=== PATIENT | female | born 1940 | race Two or more races ===

== ENCOUNTER 2016-10-13 10:28 | Emergency (ER) | payer MEDICARE, OTHER ==
[~2016-10-13] VITALS: Ht 160 cm; Wt 77.1 kg
[~2016-10-13 10:28] MED LIST: ACETAMINOPHEN-1 EAC1 ORAL; ADDERALL 5 MG TA5 MG ORAL; GINKGO BILOBA60 M3 PO; LEXAPRO10 MG ORAL; LEXAPRO20 MG ORAL; MAALOX525 MG/11 PO; MECLIZINE HCL25 MG ORAL; NAMENDA5 MG ORAL; NKM; NORCO 5-325 TA1 EACH ORAL; PEPCID40 MG PO; PRILOSEC40 MG ORAL; PROTONIX40 MG ORAL; TYLENOL EXTRA500 MG ORAL; UNOBMED; VITAMIN B-12100 MCG ORAL; VITAMIN D1000 UNI1 ORAL
[2016-10-13 10:44] VITALS: BP 107/71
[2016-10-13 11:05] LABS: APPEARANCE,URINE CLOUDY; KETONES,URINE NEGATIVE (NEGATIVE); LEUKOCYTE ESTERASE ,URINE 2+ (NEGATIVE); NITRITE,URINE NEGATIVE (NEGATIVE); PH,URINE 5 (4.5-8.0); PROTEIN,URINE 2+ (NEGATIVE); UROBILINOGEN,URINE 1 MG/DL (0.0-1.0)
[2016-10-13 11:26] LABS: BACTERIA,URINE MODERATE /HPF; SQUAMOUS EPITHELIAL CELL,UR MANY /LPF (NONE/OCC)
[2016-10-13 11:27] LABS: AMORPHOUS SEDIMENT,UR MODERATE /LPF; HYALINE CASTS, URINE 0-2 /LPF; MUCUS,URINE MODERATE /LPF (NONE/OCC)
[2016-10-13] MEDS ORDERED: BENADRYL ITCH28.3 GM TP (11:38)
[2016-10-13] MEDS ORDERED: Fluconazole 100mg tab ORAL ONE (12:00)
[2016-10-13 12:19] VITALS: BP 126/78
--- NOTE | 2016-10-14 15:30 | Emergency Room Report ---
History of Present Illness General Chief Complaint: Vaginal Present Illness HPI 76 YO F with vaginal dryness and itch for 2-3 days. Patient denies dysuria, polyuria, flank pain, fever/chills. Patient's daugter endorses patient was told she has fungal infection but didnt get treated for some reason. Denies abd pain. Allergies: Coded Allergies: AMOXICILLIN (Verified Allergy, Unknown, 12/19/09) Patient History Past Medical History: none Pertinent Family History: none Social History: Denies: alcohol use, drug use, smoking Now: No Immunizations: UTD Reviewed Nursing Documentation: PMH: Agreed, PSxH: Agreed Nursing Documentation-PMH Hx Pacemaker: No Hx Asthma: No Hx COPD: No Hx Diabetes: No Hx Cancer: No Hx Gastrointestinal Problems: Yes - abdominal pain Hx Dialysis: No Hx Neurological Problems: Yes - Vertigo Hx Cerebrovascular Accident: No Hx Dementia: No Hx Alzheimer's Disease: No Hx Parkinson's Disease: No Hx Meningitis: No Hx Encephalitis: No Hx Seizures: No Hx Epilepsy: No Hx Multiple Sclerosis: No Hx Cerebral Palsy: No Hx Amyotrophic Lat Sclerosis: No Hx Guillian-[place] Syndrome: No Hx Paralysis: No Hx Peripheral Neuropathy: No Hx Spinal Cord Injury: No Hx Head Trauma: No Hx Traumatic Brain Injury: No Hx Memory Loss: No Hx Concentration Difficulty: No Hx Speech Problem: No Hx Tremors: No Hx Vertigo: No Hx Dizziness: No Hx Syncope: No Hx Headaches: No Hx Aphasia: No Hx Dysphasia: No Hx Numbness: No Hx Weakness: No Hx Fatigue: Yes Review of Systems All Other Systems: negative except mentioned in HPI Physical Exam Vital Signs Date Time Temp Pulse Resp B/P Pulse Ox O2 Delivery O2 Flow Rate FiO2 10/13/16 10:34 97.3 88 18 107/71 98 Room Air Sp02 EP Interpretation: reviewed, normal General Appearance: normal inspection, well appearing, no apparent distress, alert Head: atraumatic ENT: normal ENT inspection, hearing grossly normal, normal voice Neck: normal inspection, full range of motion, supple, no bony tend Respiratory: normal inspection, lungs clear, normal breath sounds, no respiratory distress, no retraction, no wheezing Cardiovascular #1: regular rate, rhythm, no edema Gastrointestinal: normal inspection, normal bowel sounds, non tender, soft, no guarding, no hernia Genitourinary: no CVA tenderness, other - Pelvic exam on outside demonstrates mild amount of white discharge, dryness of labia Musculoskeletal: normal inspection, back normal, normal range of motion, Александр' s Sign negative Neurologic: normal inspection, alert, responsive, speech normal Psychiatric: normal inspection, judgement/insight normal, mood/affect normal Skin: normal inspection, normal color, no rash Medical Decision Making Diagnostic Impression: Primary Impression: Atrophic vaginitis Additional Impression: Vaginal infection ER Course UA negative for nitrites or significant amount of bacteria Patient received empiric dose of fluconazole for presumed fungal infection Rx and RX for topical benadryl Also has signs of atrophic vaginitis, recommended ENDOSCOPY TECH followup DC home Last Vital Signs Date Time Temp Pulse Resp B/P Pulse Ox O2 Delivery O2 Flow Rate FiO2 10/13/16 12:19 75 14 126/78 100 10/13/16 10:44 97.3 Room Air Status: improved Disposition: HOME, SELF-CARE Condition: Improved Scripts Diphenhydramine Hcl/Zinc Acet (BENADRYL ITCH STOPPING CRM) 28.3 Gm Cream..g. 28.3 GM TP TID for 7 Days, GM Prov: RICHA STRANGE M.D. 10/13/16 Referrals: NOT CHOSEN IPA/,REFERRING (PCP) Patient Instructions: Atrophic Vaginitis, [id number] Additional Instructions: - apply cream as needed for itchiness/dryness - Follow up with your doctor in 2-3 days RICHA STRANGE M.D. Oct 14, 2016 15:30
--- NOTE | 2016-10-31 09:23 | IOP Physician Progress Note ---
IOP Physician Progress Note Problem: other (specify) Description of Symptoms: The patient says she is more confused as her mother went into the hospital yesterday for pain. Diagnosis (1) Atrophic vaginitis (2) Vaginal infection Elmer I: Bipolar disorder r/o major depression Elmer: II deferred Elmer: III vaginitis, ?KIRT Elmer: IV moderate Elmer: V 31-40 Progress Since Last Eval: The patient is more confused today. Current Med Management: There are no plans to change. Home Meds: Active Scripts Diphenhydramine Hcl/Zinc Acet (BENADRYL ITCH STOPPING CRM) 28.3 Gm Cream..g., 28.3 GM TP TID for 7 Days, GM Prov:RICHA STRANGE M.D. 10/13/16 Acetaminophen With Codeine (T#3) (TYLENOL #3 TAB*) Y Tab, 1 TAB ORAL Q4H Y for For Pain, #30 TAB Prov:DORI MONROY M.D. 05/18/16 Reported Medications Meclizine Hcl* (MECLIZINE*) 25 Mg Tablet, 25 MG ORAL THREE TIMES A DAY, TAB 07/13/16 Escitalopram Oxalate* (LEXAPRO*) 10 Mg Tablet, 10 MG ORAL DAILY, TAB 06/24/15 Cyanocobalamin (Vitamin B-12) 100 Mcg Tab, 100 MCG ORAL DAILY, TAB 0 Refills 09/07/13 Memantine Hcl* (NAMENDA*) 5 Mg Tablet, 28 MG ORAL TWICE A DAY, TAB 09/07/13 Appearance: well groomed Affect: constricted Mood: anxious Thought Process: no abnormalities Thought Content: no abnormalities Suicidal/Homicidal Ideations: not present Risk Assessment: low risk at this time Cognition: abnormalities (specify) - The patient knows it is the first, but thinks it is Saturday, and is not able to tell me the month until after trying for a few minutes. thinks it is 2015. Accomplishments before DC: Needs to focus on orientation while she deals with feelings about her mother and her mother's illness. Comments There are no acute physical problems. JESSE COE Oct 31, 2016 09:23
== END 2016-10-13 12:19 | disposition home or self-care (01) ==
LOC: EMR 11:05
DX: N95.2 Postmenopausal atrophic vaginitis (principal); N76.0 Acute vaginitis; Z88.0 Allergy status to penicillin
CPT/HCPCS: 81003; 87086; 99283

== ENCOUNTER 2017-03-26 11:37 | Inpatient (IN) | payer MEDICARE, OTHER ==
[~2017-03-26] VITALS: Ht 157.5 cm; Wt 72.6 kg
[~2017-03-26 11:37] MED LIST changes: +BENADRYL ITCH28.3 GM TP
[2017-03-26] MEDS ORDERED: BUSPIRONE HCL5 M2 ORAL (11:46)
[2017-03-26 13:00] LABS: BASOPHILS % (AUTO) 0.8 % (0.0-2.0); EOSINOPHILS % (AUTO) 1.3 % (0.0-3.0); LYMPHOCYTES % (AUTO) 22.6 % (20.0-45.0); MEAN CORPUSCULAR HEMOGLOBIN 25.9 PG (27.0-31.0); MEAN CORPUSCULAR HGB CONC 31.3 G/DL (32.0-36.0); MEAN CORPUSCULAR VOLUME 83 FL (80-99); MEAN PLATELET VOLUME 11.4 FL (6.5-10.1); MONOCYTES % (AUTO) 8.6 % (1.0-10.0); NEUTROPHILS % (AUTO) 66.7 % (45.0-75.0); PLATELET COUNT 127 K/UL (150-450); RED BLOOD COUNT 4.71 M/UL (4.20-5.40); RED CELL DISTRIBUTION WIDTH 13.4 % (11.6-14.8); WHITE BLOOD COUNT 6.3 K/UL (4.8-10.8)
[2017-03-26 13:05] LABS: AMMONIA 27 umol/L (11-51)
[2017-03-26 13:07] LABS: TROPONIN I < 0.30 ng/mL (<=0.30)
[2017-03-26 13:08] LABS: ACETAMINOPHEN < 10 ug/mL (10-30); ALANINE AMINOTRANSFERASE 7 U/L (3-33); ALCOHOL < 10 mg/dL; ANION GAP 18 (5-15); ASPARTATE AMINO TRANSFERASE 19 U/L (5-40); CALCIUM 8.3 mg/dL (8.6-10.2); CARBON DIOXIDE 21 mEQ/L (20-30); CHLORIDE 99 mEQ/L (98-107); CREATININE 0.8 mg/dL (0.5-0.9); HEMOLYSIS 27; POTASSIUM 3.4 mEQ/L (3.4-4.9); SODIUM 138 mEQ/L (135-145); TOTAL PROTEIN 7.3 g/dL (6.6-8.7)
--- NOTE | 2017-03-26 13:40 | Diagnostic Imaging Report ---
Indications: Cough Technique: Portable AP chest Findings: Comparison: 07/11/16 Cardiac silhouette remains normal in size. Pulmonary vasculature remains within normal limits. Lungs and pleura remain clear. Mild calcification of the aortic arch is unchanged. IMPRESSION: No evidence of acute disease, unchanged Stable chronic changes as described
--- NOTE | 2017-03-26 13:46 | Diagnostic Imaging Report ---
Indications: Altered level of consciousness Technique: Continuous helical CT imaging of the brain was performed with automatic exposure control on a Siemens sensation [address] scanner. Axial and coronal images were reconstructed at 5 mm slice thickness and interval. CTDI volume(s): 70 mGy Total DLP: 1305 mGy-cm Findings: Comparison: 05/18/2016 Questionable lacunar infarct in left side of the carmela, old lacunar infarct in the head of the left caudate nucleus, chronic microvascular ischemic changes in the bilateral cerebral periventricular white matter, diffuse atrophy, bifrontal low attenuation extra-axial fluid collections due to bifrontal atrophy and/or chronic subdural effusions are unchanged.. No evidence of mass or hemorrhage, other attenuation abnormality, mass effect, midline shift, hydrocephalus or increased intracranial pressure. Bone window images are unremarkable. Paranasal sinus mucoperiosteal thickening has increased. Bilateral mastoid air cells are clear. IMPRESSION: No evidence of acute intracranial pathology, unchanged Stable chronic changes as described. The CT scanner at [facility] is accredited by the [employer] and the scans are performed using protocols designed to limit radiation exposure to as low as reasonably achievable to attain images of sufficient resolution adequate for diagnostic evaluation.
[2017-03-26 13:51] LABS: APPEARANCE,URINE CLEAR; KETONES,URINE 1+ (NEGATIVE); LEUKOCYTE ESTERASE ,URINE 1+ (NEGATIVE); NITRITE,URINE NEGATIVE (NEGATIVE); PH,URINE 6 (4.5-8.0); PROTEIN,URINE 1+ (NEGATIVE); UROBILINOGEN,URINE 4 MG/DL (0.0-1.0)
[2017-03-26 13:58] VITALS: BP 133/61
--- NOTE | 2017-03-26 14:41 | Emergency Room Report ---
History of Present Illness General Chief Complaint: Overdose Source: Family Member Present Illness HPI Brought in by family for she was coughing last night and they started giving her Delsym. They left bottle in by her and she drank most of the bottle. She was hallucinating and incoherent this morning at 7 AM. The patient has early onset dementia. She's never had hallucinations like this before. Family denies any fever, nausea, vomiting. Is reported she does have a cough. Patient denies any pain or dysuria. Allergies: Coded Allergies: AMOXICILLIN (Verified Allergy, Unknown, 12/19/09) Patient History Past Medical History: see triage record Social History Narrative cared for by daughter and mother - [place] Reviewed Nursing Documentation: PMH: Agreed, PSxH: Agreed Nursing Documentation-PMH Hx Pacemaker: No Hx Asthma: No Hx COPD: No Hx Diabetes: No Hx Cancer: No Hx Gastrointestinal Problems: Yes - abdominal pain Hx Dialysis: No Hx Neurological Problems: Yes - Vertigo Hx Cerebrovascular Accident: No Hx Dementia: No Hx Alzheimer's Disease: No Hx Parkinson's Disease: No Hx Meningitis: No Hx Encephalitis: No Hx Seizures: No Hx Epilepsy: No Hx Multiple Sclerosis: No Hx Cerebral Palsy: No Hx Amyotrophic Lat Sclerosis: No Hx Guillian-[place] Syndrome: No Hx Paralysis: No Hx Peripheral Neuropathy: No Hx Spinal Cord Injury: No Hx Head Trauma: No Hx Traumatic Brain Injury: No Hx Memory Loss: No Hx Concentration Difficulty: No Hx Speech Problem: No Hx Tremors: No Hx Vertigo: No Hx Dizziness: No Hx Syncope: No Hx Headaches: No Hx Aphasia: No Hx Dysphasia: No Hx Numbness: No Hx Weakness: No Hx Fatigue: Yes Review of Systems All Other Systems: negative except mentioned in HPI Physical Exam Vital Signs Date Time Temp Pulse Resp B/P Pulse Ox O2 Delivery O2 Flow Rate FiO2 03/26/17 11:41 98.8 91 20 116/67 97 Room Air Sp02 EP Interpretation: reviewed, normal General Appearance: well appearing, no apparent distress, lethargic Head: normocephalic, atraumatic Eyes: bilateral eye PERRL, bilateral eye normal inspection ENT: moist mucus membranes Neck: supple Respiratory: lungs clear, normal breath sounds Cardiovascular #1: regular rate, rhythm Cardiovascular #2: 2+ radial (R) Gastrointestinal: normal inspection, normal bowel sounds, non tender, no mass, non-distended Musculoskeletal: back normal, gait/station normal, normal range of motion Neurologic: responsive, motor strength/tone normal, DTRs symmetric, sensory intact Psychiatric: depressed affect Skin: normal inspection, warm/dry Medical Decision Making Diagnostic Impression: Primary Impression: Acute delirium Additional Impressions: Dextromethorphan adverse reaction Qualified Codes: T48.3X5A - Adverse effect of antitussives, initial encounter Dextromethorphan overdose Qualified Codes: T48.3X1A - Poisoning by antitussives, accidental ( unintentional), initial encounter ER Course Patient with decreased mentation after ingestion of Delsym. DDx: adverse reaction, exacerbation of dementia, electrolyte abnormality, occult infection, pneumonia. Evaluation with CT, CXR, EKG, labs. Cardiac evaluation and hydration. Labs unremarkable. EKG no injury. CT atrophy. CXR no infiltrate. The patient midway through observation and hydration is much more alert the family states that back to baseline. This is much more consistent with ingestion however the family is requesting observation for evaluation by a neurologist. Admit telemetry, Dr. Stapleton. Laboratory Tests Test 03/26/17 12:00 03/26/17 13:25 White Blood Count 6.3 K/UL (4.8-10.8) Red Blood Count 4.71 M/UL (4.20-5.40) Hemoglobin 12.2 G/DL (12.0-16.0) Hematocrit 39.0 % (37.0-47.0) Mean Corpuscular Volume 83 FL (80-99) Mean Corpuscular Hemoglobin 25.9 PG (27.0-31.0) L Mean Corpuscular Hemoglobin Concent 31.3 G/DL (32.0-36.0) L Red Cell Distribution Width 13.4 % (11.6-14.8) Platelet Count 127 K/UL (150-450) L Mean Platelet Volume 11.4 FL (6.5-10.1) H Neutrophils (%) (Auto) 66.7 % (45.0-75.0) Lymphocytes (%) (Auto) 22.6 % (20.0-45.0) Monocytes (%) (Auto) 8.6 % (1.0-10.0) Eosinophils (%) (Auto) 1.3 % (0.0-3.0) Basophils (%) (Auto) 0.8 % (0.0-2.0) Sodium Level 138 mEQ/L (135-145) Potassium Level 3.4 mEQ/L (3.4-4.9) Chloride Level 99 mEQ/L (98-107) Carbon Dioxide Level 21 mEQ/L (20-30) Anion Gap 18 (5-15) H Blood Urea Nitrogen 12 mg/dL (7-23) Creatinine 0.8 mg/dL (0.5-0.9) Estimate Glomerular Filtration Rate mL/min (>60) Glucose Level 105 mg/dL (74-106) Calcium Level 8.3 mg/dL (8.6-10.2) L Total Bilirubin 0.4 mg/dL (0.0-1.2) Aspartate Amino Transferase (AST) 19 U/L (5-40) Alanine Aminotransferase (ALT) 7 U/L (3-33) Alkaline Phosphatase 98 U/L (35-104) Ammonia 27 umol/L (11-51) Total Creatine Kinase 60 U/L (26-140) Troponin I < 0.30 ng/mL (<=0.30) Total Protein 7.3 g/dL (6.6-8.7) Albumin 3.8 g/dL (3.5-5.2) Globulin 3.5 g/dL Albumin/Globulin Ratio 1.0 (1.0-2.7) Salicylates Level < 1 mg/dL (10-30) L Acetaminophen Level < 10 ug/mL (10-30) L Serum Alcohol < 10 mg/dL Urine Color Yellow Urine Appearance Clear Urine pH 6 (4.5-8.0) Urine Specific [place] 1.020 (1.005-1.035) Urine Protein 1+ (NEGATIVE) H Urine Glucose (UA) Negative (NEGATIVE) Urine Ketones 1+ (NEGATIVE) H Urine Occult Blood 2+ (NEGATIVE) H Urine Nitrite Negative (NEGATIVE) Urine Bilirubin Negative (NEGATIVE) Urine Urobilinogen 4 MG/DL (0.0-1.0) H Urine Leukocyte Esterase 1+ (NEGATIVE) H Urine RBC 10-15 /HPF (0 - 2) H Urine WBC 0-2 /HPF (0 - 2) Urine Squamous Epithelial Cells Few /LPF (NONE/OCC) Urine Bacteria Few /HPF (NONE) Urine Opiates Screen Negative (NEGATIVE) Urine Barbiturates Screen Negative (NEGATIVE) Phencyclidine (PCP) Screen Negative (NEGATIVE) Urine Amphetamines Screen Negative (NEGATIVE) Urine Benzodiazepines Screen Negative (NEGATIVE) Urine Cocaine Screen Negative (NEGATIVE) Urine Marijuana (THC) Screen Negative (NEGATIVE) EKG Diagnostic Results Rate: normal Rhythm: NSR ST Segments: no acute changes Rhythm Strip Diag. Results EP Interpretation: yes Rhythm: NSR, no PVC's, no ectopy Chest X-Ray Diagnostic Results Chest X-Ray Ordered: Yes # of Views/Limited/Complete: 1 View EP Interpretation: Yes Interpretation: no consolidation, no effusion, no pneumothorax, no acute cardiopulmonary disease Indication: Other Impression: No acute disease Interpreting ER Provider: lis CT/MRI/US Diagnostic Results CT/MRI/US Diagnostic Results : Imaging Test Ordered: head Impression atrophy, old lacunes Last Vital Signs Date Time Temp Pulse Resp B/P Pulse Ox O2 Delivery O2 Flow Rate FiO2 03/27/17 00:00 79 03/27/17 00:00 98.0 18 132/87 96 Room Air Status: improved Disposition: ADMITTED INPATIENT Condition: Serious Referrals: NON PHYSICIAN (PCP) Evelio Desir M.D. Mar 26, 2017 14:41
[2017-03-26 14:57] LABS: BACTERIA,URINE FEW /HPF; SQUAMOUS EPITHELIAL CELL,UR FEW /LPF (NONE/OCC); WBC,URINE 0-2 /HPF (0 - 2)
[2017-03-26 16:00] VITALS: BP 137/71
[2017-03-26 18:00] VITALS: BP 127/82
[2017-03-26 20:48] VITALS: BP 131/76
--- NOTE | 2017-03-26 23:00 | Consultation ---
DATE OF CONSULTATION: 03/26/2017 HISTORY OF PRESENT ILLNESS: The patient is a 76-year-old female, who was brought in to the emergency room by her family with a chief complaint of coughing and the patient was given cough medication. She presents with altered mental status and is confused. During the evaluation in the emergency room, the patient was confused and not able to provide any history. She also has cognitive impairment, presents with waxing and waning consciousness. During evaluation by the emergency doctor, the patient was hallucinating. During my evaluation, the patient was not hallucinating, was a poor historian. PAST PSYCHIATRIC HISTORY: Unknown. She does not have any history of psychiatric hospitalization. No suicide attempt. PAST MEDICAL HISTORY: Includes UTI, weakness, contusion of the left shoulder, acute head injury, atrial bigeminy, and vertigo. ALLERGIES: Amoxicillin. SUBSTANCE ABUSE HISTORY: There is no known history of illicit drug use or alcohol. MENTAL STATUS EXAMINATION: The patient was confused and disoriented. Mood was neutral during the evaluation. Affect was constricted. Eyes were closed. There was a paucity of thought content. Cognition is impaired. ASSESSMENT: [place] I Delirium status post overdose. [place] II Deferred. [place] III As above. [place] IV Low. [place] V Global assessment of functioning is 20. PLAN: We will not start the patient on any medication at this time. We will reassess tomorrow. The patient may clear, however, if there is another underlying possible delirium may consider low-dose of antipsychotics. Daniel Kessler M.D. DR: JULIO JOB#: [id number] CC:
[2017-03-27] VITALS (7 sets, daily range): BP systolic 112–134; BP diastolic 54–87
[2017-03-27 05:50] LABS: BASOPHILS % (AUTO) 1.1 % (0.0-2.0); EOSINOPHILS % (AUTO) 4.1 % (0.0-3.0); LYMPHOCYTES % (AUTO) 32.5 % (20.0-45.0); MEAN CORPUSCULAR HEMOGLOBIN 27.2 PG (27.0-31.0); MEAN CORPUSCULAR HGB CONC 32.8 G/DL (32.0-36.0); MEAN CORPUSCULAR VOLUME 83 FL (80-99); MEAN PLATELET VOLUME 13.3 FL (6.5-10.1); MONOCYTES % (AUTO) 11.1 % (1.0-10.0); NEUTROPHILS % (AUTO) 51.3 % (45.0-75.0); PLATELET COUNT 115 K/UL (150-450); RED BLOOD COUNT 4.28 M/UL (4.20-5.40); RED CELL DISTRIBUTION WIDTH 13.1 % (11.6-14.8); WHITE BLOOD COUNT 5.1 K/UL (4.8-10.8)
[2017-03-27 08:38] LABS: ALANINE AMINOTRANSFERASE 6 U/L (3-33); ANION GAP 20 (5-15); ASPARTATE AMINO TRANSFERASE 17 U/L (5-40); CALCIUM 8.4 mg/dL (8.6-10.2); CARBON DIOXIDE 19 mEQ/L (20-30); CHLORIDE 102 mEQ/L (98-107); CREATININE 0.7 mg/dL (0.5-0.9); HEMOLYSIS 4; POTASSIUM 3.5 mEQ/L (3.4-4.9); SODIUM 141 mEQ/L (135-145); TOTAL PROTEIN 6.5 g/dL (6.6-8.7)
[2017-03-27] MEDS ORDERED: OLANZapine 2.5mg tab ORAL PRN (12:30)
--- NOTE | 2017-03-27 16:45 | Progress Note ---
SUBJECTIVE: Apparently, the patient was able to sleep last night. However, continues to be confused and presents with waxing and waning consciousness. No acute events. Compliant. MENTAL STATUS EXAMINATION: The patient is confused and is a poor historian. Mood is neutral. Affect is blunted. Congruent with mood. Thought process, there is a paucity of thought content. No suicidal or homicidal ideation. Cognition is impaired. ASSESSMENT: Delirium due to general medical condition. PLAN: We will start the patient on a low dose of Zyprexa. Daniel Kessler M.D. DR: ANGELA JOB#: [id number] CC:
--- NOTE | 2017-03-27 18:08 | Consultation ---
Consult Note Consult Note NEUROLOGY CONSULTATION: Full note dictated #[id number] 76 y/o, RH, CF with PH of OP and mild memory problems. Had a cough for the last few days and was taking cough syrup for it. She started to have hallucinations of seeing people in her bedroom drinking and partying. She was very scared when this happened and she was thus brought to the hospital. The hallucinations have since stopped. ON EXAM: Problems with orientation. Recent and remote memory VS function Globally diminished reflexes. IMPRESSION: Drug induced delirium now resolved. Underlying mild dementia. REC: Careful with Cough Medicine in future. W/U for memeory loss. Kenrick Santos M.D., M.S.P.KENRICK BAUM Mar 27, 2017 18:08
--- NOTE | 2017-03-27 22:00 | Consultation ---
DATE OF CONSULTATION: 03/27/2017 NEUROLOGY CONSULTATION REQUESTING PHYSICIAN: Amanda Molina M.D. HISTORY: Ms. Lucille Liang is a 76-year-old, right-handed, lady, who does have a past history of osteoporosis, head injury in the past, atrial arrhythmia , vertigo and mild cognitive dysfunction. She was functioning relatively well at home until about 4 to 5 days prior to admission when she developed a cough. She was taking some cough medicine and there is a high probability that she took too much cough medicine. When she did so she started to see unusual people in her room and she would see them in the room partying and drinking. This scared her significantly and she became increasingly confused and disoriented. As a result of that, she was brought into the [facility] emergency room on 03/26/2017. Since then, she has improved significantly. Her mind has cleared up significantly and she denies any further hallucinations. She also denies any weakness on one side or the other, numbness on one side or the other, problems with speech, problems with language, problems with vision, but has noticed that her memory is not as sharp as it used to be. PAST MEDICAL HISTORY: Significant for osteoporosis, atrial bigeminy, prior urinary tract infections and head injury. FAMILY HISTORY: Her mother is in her 90s and she lives with her mother who is apparently healthy, but she does not know what her father from. PERSONAL HISTORY: Home: She says that she lives with her mother who is in her 90s. 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 Habits: She used to drink large amounts of alcohol in the past, but stopped drinking numerous years ago. She denies use of tobacco or illicit drugs. PRESENT MEDICATIONS: Include Zyprexa 2.5 mg at bedtime and Tylenol p.r.n. PHYSICAL EXAMINATION: GENERAL: She is a well-developed, well-nourished, pleasant, lady, lying in bed, in no acute distress. VITAL SIGNS: Pulse 76 per minute, blood pressure 134/82 mmHg, respirations 20 per minute, and temperature 98.2 degrees Fahrenheit. HEAD: Normocephalic and atraumatic. NECK: No neck rigidity was observed. EENT EXAMINATION: Benign. NEUROLOGICAL EXAMINATION: MENTAL STATUS EXAMINATION: She was awake and alert. She was oriented to [facility], [facility] and February 2017, she did not know the exact date. She was able to recall 3/3 words immediately, but could only remember 1 out of 3 words in 1 minute and 3 minutes even on the second trial. She was able to remember presidents Trump and Obama, but could not remember presidents prior to that. Her mathematical skills were fairly good. Her visuospatial function was impaired. SPEECH: She had no dysarthria. LANGUAGE: She had no aphasia taking into account that Kiswahili is her second language. CRANIAL NERVE EXAMINATION: II: The visual white were intact on confrontation testing. III, IV & : The external ocular movements were full and the pupils 3 mm in diameter, equal, round, regular and reactive to light. V: She had normal facial sensations and the temporales, masseters, and pterygoids functioned normally. VII: She had normal facial expressions and no facial asymmetry. VIII: She was able to hear well bilaterally and had no nystagmus. IX: The palate moved symmetrically on phonation. X: She had no hoarseness of voice. XI: The sternocleidomastoids and trapezii functioned normally. XII: The tongue was in the midline without any fasciculations or atrophy. MOTOR SYSTEM: The tone was normal in all four extremities. Examination of muscle mass revealed no focal wasting. Examination of power revealed grade 5/5 power in all muscle groups tested. SENSORY EXAMINATION: She had intact sensations to pinprick, light touch, and graphesthesia. COORDINATION: She performed well on [id number]-[id number] and qfeg-ia-[id number] testing. REFLEXES: Trace+ and bilaterally symmetrical at the biceps, triceps, brachioradialis, and knees and 0 at both ankles. The plantar responses were flexor bilaterally. STANCE: She stood up with contact guard. GAIT: She walked well with contact guard. DIAGNOSTIC IMPRESSION: 1. Ms. Lucille Liang is a 76-year-old, right-handed, lady, who has a past history of osteoporosis, urinary tract infections, head injury and an atrial arrhythmia. She was functioning well until a few days ago when she developed a cough. She started to take some cough medicine and following that was noted to be hallucinating. Her hallucinations have now resolved completely. She does have some mild memory problems, which she says that she has had for some time now. 2. On neurological examination, at this time, she is disoriented to the exact date. She has problems with recent and remote memory and visuospatial dysfunction. She also has globally diminished reflexes. 3. Laboratory data revealed a mild anemia with a hemoglobin of 11.7, chemistry panel with a low calcium at 8.4 and albumin of 3.3. Her toxicology screen is negative for urinary drug metabolites and serum alcohol. The urinalysis reveals 1+ leukocyte esterase, 10-15 RBCs and 0-2 WBCs per high-power field, with a few bacteria. 4. CT scan of the brain without contrast reveals bilateral frontotemporal atrophy, and in addition old lacunar infarcts noted in the head of the left caudate and possibly in the left side of the carmela. 5. The patient's history and neurological examination are most compatible with an episode of toxic delirium related to the cough medicine that she was taking. The delirium has now resolved. 6. She also seems to have underlying cognitive dysfunction involving her memory and visuospatial function. RECOMMENDATIONS: 1. Agree with management thus far. 2. She was told to be careful with cough medicine in the future. 3. She should be worked up thoroughly for other treatable causes of memory decline. 4. Depending on the results of the laboratory tests, further recommendations will be given. Thank you for entrusting me with the care of . I shall follow her with you. Clement Santos M.D., M.S.P.H. DR: ANGELA JOB#: [id number]
--- NOTE | 2017-03-28 00:45 | History and Physical Report ---
DATE OF ADMISSION: 03/26/2017 HISTORY OF PRESENT ILLNESS: The patient is admitted for altered level of consciousness, delirium. There is a questionable taking too much Robitussin accidentally. The patient denies overdose. The patient does have dementia, so she might have forgotten it. It is unclear at this point. The patient is more confused than her baseline according to the family and is recently been delirious. We need to find out why. PAST MEDICAL HISTORY: CVA, dementia, history of contusion of the shoulders, history of atrial bigeminy, history of benign paroxysmal vertigo, history of atrophic vaginitis, history of psychosis, depression as well as osteoporosis. The patient also was dizzy, denied vertigo, was oriented x2. PAST SURGICAL HISTORY: Bilateral hip surgery, left shoulder and left knee surgery, as well as hysterectomy. MEDICATIONS: Zyprexa, does not know the rest of the medications that she takes. ALLERGIES: Penicillin. SOCIAL HISTORY: The patient denies smoking, denies drug abuse, does have history of alcohol abuse. FAMILY HISTORY: Noncontributory. REVIEW OF SYSTEMS: HEENT: Denies headaches. Respiratory: Denies shortness of breath. Denies cough. Cardiovascular: Denies chest pain. No orthopnea. Gastrointestinal: Denies nausea, vomiting, or diarrhea. Extremities: Denies pain. Central Nervous System: Denies change in vision or speech pattern, but does have dizziness and more confusion and apparently was hallucinating as well. PHYSICAL EXAMINATION: VITAL SIGNS: Temperature is 97.5 degrees, pulse rate 67, and blood pressure 123/64. HEENT: PERRLA. NECK: Supple. No lymphadenopathy. CHEST: Clear to auscultation. GASTROINTESTINAL: Soft, nontender, and nondistended. No organomegaly. EXTREMITIES: No edema. Moves all four extremities. NEUROLOGIC: Sensory intact to light touch. Reflexes are equal on both sides. Moves all four extremities. Oriented x2. LABORATORY DATA: WBC 6.3, hemoglobin 12, and platelets 127,000. Sodium 138, potassium 3.4, BUN 12, creatinine 0.8, and glucose 105. ASSESSMENT AND PLAN: Altered mental status and delirium. We need to find out why the patient is hallucinating, confused. I have asked Dr. Santos, Dr. Kessler, Dr. Jimenez, and Dr. Stanley to see the patient to rule out infectious etiology as other reasons of altered mental status and delirium. Amanda Molina M.D. DR: Brent JOB#: [id number] CC:
[2017-03-28 04:00] VITALS: BP 112/76
[2017-03-28 07:45] VITALS: BP 103/57
[2017-03-28 08:46] LABS: THYROID STIMULATING HORMONE 3.45 uIU/mL (0.300-4.500)
--- NOTE | 2017-03-28 10:34 | General Progress Note ---
Assessment/Plan Problem List: (1) Dizziness of unknown cause ICD Codes: R42 - Dizziness and giddiness SNOMED: 683661625 (2) Altered mental status ICD Codes: R41.82 - Altered mental status, unspecified SNOMED: 417253296 (3) Acute delirium ICD Codes: R41.0 - Disorientation, unspecified SNOMED: 0837485 Status: progressing Assessment/Plan improving reviewed chart and labs afebrile obs dizzy no headache Subjective ROS Limited/Unobtainable: Yes Allergies: Coded Allergies: AMOXICILLIN (Verified Allergy, Unknown, 12/19/09) Objective Last 24 Hour Vital Signs Date Time Temp Pulse Resp B/P Pulse Ox O2 Delivery O2 Flow Rate FiO2 03/28/17 07:45 96.7 66 18 103/57 97 Room Air 03/28/17 07:37 80 03/28/17 04:00 64 03/28/17 04:00 97.5 63 18 112/76 97 Room Air 03/28/17 00:00 69 03/27/17 23:50 98.6 69 19 120/65 98 Room Air 03/27/17 20:00 78 03/27/17 19:51 98.2 92 20 130/84 98 Room Air 03/27/17 16:00 75 03/27/17 16:00 98.2 77 21 134/82 100 Room Air 03/27/17 15:45 68 03/27/17 12:09 71 03/27/17 12:00 97.7 91 20 112/58 98 Room Air Intake and Output 03/27/17 03/28/17 19:00 07:00 Intake Total 990 ml 412 ml Balance 990 ml 412 ml Intake Oral 150 ml IV Total 840 ml 412 ml # Voids 3 3 # Bowel Movements 1 Laboratory Tests 03/28/17 07:30: Vitamin B12 Level 646, Vitamin D 25-Hydroxy [Pending], 25-Hydroxy Vitamin D2 [ Pending], 25-Hydroxy Vitamin D3 [Pending], Folate [Pending], Thyroid Stimulating Hormone (TSH) 3.450, Rapid Plasma Reagin [Pending], Hepatitis A IgM Antibody [Pending], Hepatitis B Surface Antigen [Pending], Hepatitis B Core IgM Antibody [Pending], Hepatitis C Antibody [Pending], HIV (1&2) Antibody Rapid Negative Height (Feet): 5 Height (Inches): 2.00 Weight (Pounds): 160 General Appearance: confused Cardiovascular: normal rate Respiratory/Chest: lungs clear Amanda Molina MD Mar 28, 2017 10:34
[2017-03-28 11:27] VITALS: BP 111/63
--- NOTE | 2017-03-28 13:10 | Neurology Progress Note ---
Interim History Interim History Interim History Ms. Liang feels better. The mind is clear She has had no hallucinations. She denies any new neurologic symptoms. She specifically denies any weakness, numbness, visual problems, speech problems. The memory is still not very good. Review of Systems Neuro Review of Systems Benign. Objective Physical Exam Last Vital Signs Date Time Temp Pulse Resp B/P Pulse Ox O2 Delivery O2 Flow Rate FiO2 03/28/17 11:27 97.7 63 18 111/63 96 Room Air Laboratory Tests Test 03/28/17 07:30 Vitamin B12 Level 646 pg/mL (211-946) Vitamin D 25-Hydroxy Pending 25-Hydroxy Vitamin D2 Pending 25-Hydroxy Vitamin D3 Pending Folate Pending Thyroid Stimulating Hormone (TSH) 3.450 uIU/mL (0.300-4.500) Rapid Plasma Reagin Pending Hepatitis A IgM Antibody Pending Hepatitis B Surface Antigen Pending Hepatitis B Core IgM Antibody Pending Hepatitis C Antibody Pending HIV (1&2) Antibody Rapid Negative (NEGATIVE) Neurologic Exam Objective PHYSICAL EXAMINATION: GENERAL: She is a well-developed, well-nourished, pleasant, lady, lying in bed, in no acute distress. HEAD: Normocephalic and atraumatic. NECK: No neck rigidity was observed. EENT EXAMINATION: Benign. NEUROLOGICAL EXAMINATION: MENTAL STATUS EXAMINATION: She was awake and alert. She was oriented to [facility] and February 2017, she did not know the exact date. She was able to recall 3/3 words immediately, but could only remember 1/3 words in 1 minute and 3 minutes. She was able to remember presidents Trump and Obama, but could not remember presidents prior to that. Her mathematical skills were fairly good. Her visuospatial function was impaired. SPEECH: She had no dysarthria. LANGUAGE: She had no aphasia taking into account that Gabonese is her second language. CRANIAL NERVE EXAMINATION: II: The visual white were intact on confrontation testing. III, IV & : The external ocular movements were full and the pupils 3 mm in diameter, equal, round, regular and reactive to light. V: She had normal facial sensations and the temporales, masseters, and pterygoids functioned normally. VII: She had normal facial expressions and no facial asymmetry. VIII: She was able to hear well bilaterally and had no nystagmus. IX: The palate moved symmetrically on phonation. X: She had no hoarseness of voice. XI: The sternocleidomastoids and trapezii functioned normally. XII: The tongue was in the midline without any fasciculations or atrophy. MOTOR SYSTEM: The tone was normal in all four extremities. Examination of muscle mass revealed no focal wasting. Examination of power revealed grade 5/5 power in all muscle groups tested. SENSORY EXAMINATION: She had intact sensations to pinprick, light touch, and graphesthesia. COORDINATION: She performed well on hjenkz-jy-wdhw and tmbp-pj-fypt testing. REFLEXES: Trace+ and bilaterally symmetrical at the biceps, triceps, brachioradialis, and knees and 0 at both ankles. The plantar responses were flexor bilaterally. STANCE: She stood up with contact guard. GAIT: She walked well with contact guard. Impression/Recommendations Diagnostic Impression 1. Ms. Lucille Liang is a 76-year-old, right-handed, lady, who has a past history of osteoporosis, urinary tract infections, head injury and an atrial arrhythmia. She was functioning well until a few days ago when she developed a cough. She started to take some cough medicine and following that was noted to be hallucinating. Her hallucinations have now resolved completely. She does have some mild memory problems, which she says that she has had for some time now. 2. She feels well today and has had no further hallucinations. 3. On neurological examination, at this time, she is disoriented to the exact date. She has problems with recent and remote memory and visuospatial dysfunction. She also has globally diminished reflexes. 4. Laboratory data revealed a mild anemia with a hemoglobin of 11.7, chemistry panel with a low calcium at 8.4 and albumin of 3.3. Her toxicology screen is negative for urinary drug metabolites and serum alcohol. The urinalysis reveals 1+ leukocyte esterase, 10-15 RBCs and 0-2 WBCs per high-power field, with a few bacteria. Her B12 and TSH are also normal 5. CT scan of the brain without contrast reveals bilateral frontotemporal atrophy, and in addition old lacunar infarcts noted in the head of the left caudate and possibly in the left side of the carmela. 6. The patient's history and neurological examination are most compatible with an episode of toxic delirium related to the cough medicine that she was taking. The delirium has now resolved. 7. She also seems to have underlying cognitive dysfunction involving her memory and visuospatial function - no treatable reasons have been discovered yet. Recommendations 1. Continue present management . 2. She was told to be careful with cough medicine in the future. 3. Mobilize rapidly. Kenrick Santos M.D., M.S.P.Melonie. KENRICK SANTOS Mar 28, 2017 13:10
--- NOTE | 2017-03-28 15:45 | Diagnostic Imaging Report ---
Indication: Pain, dizziness, low platelet Technique: Lunsford-scale and duplex images of the upper abdomen were obtained Comparison: 01/31/2013 Findings: Gallbladder is not visualized. Common bile duct measures 8 mm in diameter. No intrahepatic biliary ductal dilatation. Liver demonstrates normal echogenicity, no focal abnormality. Portal vein and hepatic veins are patent. Pancreas is unremarkable. Spleen is unremarkable. Left kidney measures 10 cm in length. Right kidney measures 10 cm length. Both kidneys demonstrate normal echogenicity. There is no hydronephrosis. No focal abnormality . Non-aneurysmal abdominal aorta . Impression: Nonvisualized gallbladder. CT scan of November 2012 demonstrates are cholecystectomy Mildly dilated, 8 mm, common bile duct. Also demonstrated on earlier CT scan, probably related to age and postcholecystectomy state. Nonetheless, correlation with liver function tests is recommended. Otherwise unremarkable
--- NOTE | 2017-03-29 02:31 | Consultation ---
DATE OF CONSULTATION: 03/28/2017 NOTE: "POOR AUDIO QUALITY" HEMATOLOGY/ONCOLOGY CONSULTATION CONSULTING PHYSICIAN: Kiel Garza M.D. REQUESTING PHYSICIAN: Amanda Molina M.D. REASON FOR CONSULTATION: Evaluation of anemia. IDENTIFICATION: Dear Dr. Amanda Molina, The patient is a pleasant 76-year-old female with a past medical history, which is significant for osteoporosis, injury to the head in the past, history of , vertigo, and mild cognitive dysfunction, at this time presents from home medications, became disoriented, confused, two days ago. She has had labs drawn, was noted to have platelet count of 115,000. Hepatitis and HIV are both negative. I have discussed at the bedside the patient's care, daughter is very upset today. ultrasound 8 mm common bile duct noted, otherwise unremarkable ultrasound. PAST MEDICAL HISTORY: CVA, dementia, history of confusion, history of atrial bigeminy, history of benign paroxysmal vertigo, history of atrophic vaginitis, history of psychosis, depression, and osteoporosis. PAST SURGICAL HISTORY: Bilateral hip surgery and left shoulder and left knee surgery. MEDICATIONS: Zyprexa, other medications reviewed and reconciled. ALLERGIES: Penicillin. SOCIAL HISTORY: Denies any alcohol, tobacco, or illicit drug use. Taiwanese speaking. FAMILY HISTORY: Noncontributory. REVIEW OF SYSTEMS: Constitutional: No fever, chills, or night sweats. Skin: No rashes, lumps, or itching. HEENT: No headache, hearing or vision changes. Breasts: No lumps, pain, or discharge. Pulmonary: No cough, sputum, or shortness of breath. Cardiovascular: No chest pain, tightness, or palpitations. Gastrointestinal: No nausea, vomiting, or diarrhea. Genitourinary: No dysuria, frequency, or urgency. Musculoskeletal: No joint swelling, muscle pain, or trauma. PHYSICAL EXAMINATION: GENERAL: The patient is in no acute distress. VITAL SIGNS: Reviewed, stable. PULMONARY: Decreased breath sounds. CARDIOVASCULAR: Regular rate. No S3 or S4. ABDOMEN: Soft, nontender, and nondistended. EXTREMITIES: A 1+ edema. LABORATORY DATA: Platelet count of 127,000, hemoglobin 12, and WBC 6.3. BUN of 12 and creatinine 0.8. Glucose of 105. ASSESSMENT AND RECOMMENDATIONS: 1. Thrombocytopenia. 2. Underlying infection medication. 3. Anemia, secondary to chronic disease, hemoglobin is 11. Continue to closely monitor. evaluation. 4. evaluation. 5. Altered mental status. 6. . 7. Cerebrovascular accident. 8. Dementia. 9. Confusion. 10. . 11. Discussed with staff. 12. Discussed with patient. Kiel Garza M.D. DR: JUSTYNA JOB#: [id number] CC:
--- NOTE | 2017-03-29 09:42 | Discharge Summary ---
Discharge Summary Hospital Course Date of Admission Mar 26, 2017 at 13:43 Date of Discharge Mar 28, 2017 at 15:16 Admitting Diagnosis ALOC, delirium HPI Lucille Liang is a 76 year old female who was admitted on Mar 26, 2017 at 13:43 for Altered Level Of Consciousness,Delirium Hospital Course [id number] Discharge Discharge Disposition Patient was discharged to Home (01) Discharge Diagnoses: Jyotsna Velazquez NP Mar 29, 2017 09:42
--- NOTE | 2017-03-29 17:46 | Progress Note ---
DATE: 03/28/2017 SUBJECTIVE: The patient was in bed resting, calm. No behavior issues. Cognition is still impaired; however, the patient is doing better. Compliant. No behavior issues. No agitation. MENTAL STATUS EXAMINATION: The patient is still disoriented and is a poor historian. Mood was neutral. Affect was flat, congruent with mood. Thought process is concrete. Thought content, no suicidal or homicidal ideations. ASSESSMENT: 1. Cognitive impairment. 2. Delirium. PLAN: 1. The patient will be continued on olanzapine. 2. We will continue to follow and readjust the meds. Daniel Kessler M.D. DR: TRUPTI JOB#: [id number] CC:
--- NOTE | 2017-03-29 22:02 | Discharge Summary 2 SIG ---
DATE OF ADMISSION: 03/26/2017 DATE OF DISCHARGE: 03/28/2017 CONSULTANTS: 1. Clement Santos M.D. 2. Kiel Garza M.D. BRIEF HOSPITAL COURSE: The patient is a 76-year-old female, who was taken to ED for altered level of consciousness. She was brought in by family and stated that they gave her cough medications for patient's cough. They left and they noticed that the patient drank most of the medications. She was hallucinating and was incoherent. On evaluation at ED, laboratories were unremarkable. EKG did not show any acute injury. Chest x-ray showed no acute disease. Head CT showed no evidence of acute intracranial pathology. The patient was admitted to telemetry for altered mental status and delirium and was seen by Dr. Kessler and was diagnosed to have delirium status post overdose. She was then started on Zyprexa. On neurologic evaluation, hallucinations have resolved. She does have mild memory problems. She was assessed to have episode of toxic delirium related to cough medication that she was taking. She counselled about medication intake. Anemia was assessed to be chronic. Urine toxicology was negative. Hepatitis panel, syphilis, and HIV were negative. Abdominal ultrasound showed nonvisualization of the gallbladder. The patient was discharged home. Advised to follow up with PMD as an outpatient. FINAL DIAGNOSES: 1. Acute toxic encephalopathy secondary to cough medications. 2. Acute delirium. 3. Anemia of chronic disease. Amanda Molina M.D. I have been assigned to dictate discharge summary on this account and I was not involved in the patient's management. Jyotsna Velazquez N.P. DR: NEHA JOB#: [id number] CC: [place]
--- NOTE | 2017-03-30 14:02 | Cardiology Report ---
APPROVED REPORT EKG Measurement Heart [id number] PA 160P [id number] Wandering atrial pacemaker with occasional premature ventricular complexes. Nonspecific T wave abnormality Prolonged QT Abnormal ECG
== END 2017-03-28 15:16 | disposition home or self-care (01) | DRG 917 ==
LOC: EMR 12:10 → 2W 13:43 → EDBEDREQ 15:10 → 2E 03-27 17:08
DX: T48.4X1A Poisoning by expectorants, accidental (unintentional), initial encounter (principal); G92 Toxic encephalopathy; D69.6 Thrombocytopenia, unspecified; F03.90 Unspecified dementia, unspecified severity, without behavioral disturbance, psychotic disturbance, mood disturbance, and anxiety; F05 Delirium due to known physiological condition; Z86.73 Personal history of transient ischemic attack (TIA), and cerebral infarction without residual deficits; Y92.009 Unspecified place in unspecified non-institutional (private) residence as the place of occurrence of the external cause; Z88.1 Allergy status to other antibiotic agents; M81.0 Age-related osteoporosis without current pathological fracture; D63.8 Anemia in other chronic diseases classified elsewhere
CPT/HCPCS: 36415; 70450; 71010; 76700; 80053; 80300; 80329; 81003; 82140; 82306; 82550; 82607; 82746; 82962; 84443; 84484; 85025; 85651; 86592; 86703; 86705; 86709; 86803; 87340; 93005

== ENCOUNTER 2017-07-29 14:30 | Outpatient (RCR) | payer MEDICARE, OTHER ==
[~2017-07-29 14:30] MED LIST changes: +BUSPIRONE HCL5 M2 ORAL
== END 2017-07-30 | disposition home or self-care (01) ==
LOC: PTY 14:30
DX: M17.0 Bilateral primary osteoarthritis of knee (principal)
CPT/HCPCS: 97035; 97110; 97162; G0283; G8978; G8979

== ENCOUNTER 2017-08-19 13:45 | Outpatient (RCR) | payer MEDICARE, OTHER | END 2017-08-29 | disposition home or self-care (01) | LOC: PTY 13:45 | DX: M17.0 Bilateral primary osteoarthritis of knee (principal) | CPT/HCPCS: 97035; 97110; 97140; G0283 ==

== ENCOUNTER 2019-02-18 09:37 | Inpatient (IN) | payer MEDICARE, OTHER ==
[~2019-02-18] VITALS: Ht 162.6 cm; Wt 77.1 kg
[~2019-02-18 09:37] MED LIST changes: +CALCIUM 500 MG1 EAC1 PO; +ELIQUIS5 MG PO; +FOSAMAX70 MG ORAL; +METOPROLOL TART25 MG ORAL; +MULTIVITAMINS1 EAC2 ORAL; +QUETIAPINE FUM100 MG ORAL; +SALSALATE750 MG ORAL; +SEROQUEL25 MG ORAL
--- NOTE | 2019-02-18 09:57 | NUR ---
ED Nurse Note: Pt brought to ED in WC from medical center across the . Pt A&Ox4, VSS, c/o lower back pain 10/10 radiating to neck. Pt denies sob or chest pain at this time.Pt denies back injury or fall. Pt placed on furniture fabricator and gowned. Will continue to monitor.
[2019-02-18] MEDS ORDERED: Isovue-300 100ml vial INJ PRN (10:00)
--- NOTE | 2019-02-18 10:17 | Emergency Room Report ---
History of Present Illness General Chief Complaint: Lower Back Pain or Injury Source: Patient Present Illness HPI Patient just with complaints of back pain Reports that this morning she awoke to the pain Denies any focal weakness however she has increased pain with any ambulation Denies any fevers or chills Patient reports that she has history of osteoporosis and feels that this is exacerbating her problem She also has had previous low back and neck surgery Denies any neuropathy denies any loss of control of bowel urinations Denies any upper extremity weakness denies any recent fall or trauma Allergies: Coded Allergies: AMOXICILLIN (Verified Allergy, Unknown, 12/19/09) Patient History Past Medical History: see triage record Pertinent Family History: none Reviewed Nursing Documentation: PMH: Agreed; PSxH: Agreed Nursing Documentation-PMH Hx Pacemaker: No Hx Asthma: No Hx COPD: No Hx Diabetes: No Hx Cancer: No Hx Gastrointestinal Problems: Yes - abdominal pain Hx Dialysis: No Hx Neurological Problems: Yes - Vertigo Hx Cerebrovascular Accident: No Hx Dementia: No Hx Alzheimer's Disease: No Hx Parkinson's Disease: No Hx Meningitis: No Hx Encephalitis: No Hx Seizures: No Hx Epilepsy: No Hx Multiple Sclerosis: No Hx Cerebral Palsy: No Hx Amyotrophic Lat Sclerosis: No Hx Guillian-[place] Syndrome: No Hx Paralysis: No Hx Peripheral Neuropathy: No Hx Spinal Cord Injury: No Hx Head Trauma: No Hx Traumatic Brain Injury: No Hx Memory Loss: No Hx Concentration Difficulty: No Hx Speech Problem: No Hx Tremors: No Hx Vertigo: No Hx Dizziness: No Hx Syncope: No Hx Headaches: No Hx Aphasia: No Hx Dysphasia: No Hx Numbness: No Hx Weakness: No Hx Fatigue: Yes Review of Systems All Other Systems: negative except mentioned in HPI Physical Exam Vital Signs Date Time Temp Pulse Resp B/P (MAP) Pulse Ox O2 Delivery O2 Flow Rate FiO2 02/18/19 09:41 97.9 86 19 93/67 (76) 96 Room Air Sp02 EP Interpretation: reviewed, normal General Appearance: well appearing, no apparent distress Head: normocephalic, atraumatic Eyes: bilateral eye PERRL, bilateral eye EOMI ENT: hearing grossly normal, normal pharynx, TMs + canals normal, uvula midline Neck: full range of motion, supple, no meningismus, no bony tend Respiratory: lungs clear, normal breath sounds, no rhonchi, no respiratory distress, no retraction, no accessory muscle use Cardiovascular #1: normal peripheral pulses, no gallop, no JVD, no murmur, irregularly irregular Gastrointestinal: normal bowel sounds, non tender, soft, no mass, no organomegaly, non-distended, no guarding, no hernia, no pulsatile mass, no rebound Genitourinary: no CVA tenderness Musculoskeletal: normal inspection Neurologic: oriented x3, responsive, ict project manager III-XII nml as tested, motor strength/ tone normal, sensory intact Psychiatric: mood/affect normal Skin: other - Dependent edema bilaterally Lymphatic: normal inspection, no adenopathy Medical Decision Making Diagnostic Impression: Primary Impression: Low back pain Additional Impressions: Weakness Compression fx, lumbar spine ER Course Patient is a fairly complex patient with multiple differential to consideration including but not limited to cardiac cardiopulmonary, neurological, neurosurgical, muscle skeletal and vascular emergencies Patient's blood work is at baseline levels CT imaging does reveal to levels of lumbar spine fracture appeared to be chronic and clinically patient also has not had any acute trauma given the patient's comorbidities discomfort and presentation placed into admission for further care Labs Test 02/18/19 10:15 02/18/19 11:26 White Blood Count 5.9 K/UL (4.8-10.8) Red Blood Count 4.63 M/UL (4.20-5.40) Hemoglobin 12.5 G/DL (12.0-16.0) Hematocrit 38.8 % (37.0-47.0) Mean Corpuscular Volume 84 FL (80-99) Mean Corpuscular Hemoglobin 26.9 PG (27.0-31.0) Mean Corpuscular Hemoglobin Concent 32.2 G/DL (32.0-36.0) Red Cell Distribution Width 15.0 % (11.6-14.8) Platelet Count 132 K/UL (150-450) Mean Platelet Volume 8.9 FL (6.5-10.1) Neutrophils (%) (Auto) 65.6 % (45.0-75.0) Lymphocytes (%) (Auto) 25.2 % (20.0-45.0) Monocytes (%) (Auto) 6.0 % (1.0-10.0) Eosinophils (%) (Auto) 2.5 % (0.0-3.0) Basophils (%) (Auto) 0.7 % (0.0-2.0) Prothrombin Time 11.7 SEC (9.30-11.50) Prothromb Time International Ratio 1.1 (0.9-1.1) Activated Partial Thromboplast Time 28 SEC (23-33) Sodium Level 141 MMOL/L (136-145) Potassium Level 3.6 MMOL/L (3.5-5.1) Chloride Level 108 MMOL/L (98-107) Carbon Dioxide Level 22 MMOL/L (21-32) Anion Gap 12 mmol/L (5-15) Blood Urea Nitrogen 18 mg/dL (7-18) Creatinine 1.0 MG/DL (0.55-1.30) Estimat Glomerular Filtration Rate mL/min (>60) Glucose Level 148 MG/DL (74-106) Calcium Level 8.4 MG/DL (8.5-10.1) Total Bilirubin 0.4 MG/DL (0.2-1.0) Aspartate Amino Transf (AST/SGOT) 20 U/L (15-37) Alanine Aminotransferase (ALT/SGPT) 14 U/L (12-78) Alkaline Phosphatase 72 U/L (46-116) Total Creatine Kinase 55 U/L (26-308) Creatine Kinase MB 0.6 NG/ML (0.0-3.6) Creatine Kinase MB Relative Index 1.0 Troponin I 0.000 ng/mL (0.000-0.056) Total Protein 7.3 G/DL (6.4-8.2) Albumin 3.3 G/DL (3.4-5.0) Globulin 4.0 g/dL Albumin/Globulin Ratio 0.8 (1.0-2.7) Urine Color Pale yellow Urine Appearance Clear Urine pH 7 (4.5-8.0) Urine Specific [place] 1.005 (1.005-1.035) Urine Protein Negative (NEGATIVE) Urine Glucose (UA) Negative (NEGATIVE) Urine Ketones Negative (NEGATIVE) Urine Blood 1+ (NEGATIVE) Urine Nitrite Negative (NEGATIVE) Urine Bilirubin Negative (NEGATIVE) Urine Urobilinogen Normal MG/DL (0.0-1.0) Urine Leukocyte Esterase Negative (NEGATIVE) Urine RBC 2-4 /HPF (0 - 2) Urine WBC 0-2 /HPF (0 - 2) Urine Squamous Epithelial Cells Few /LPF (NONE/OCC) Urine Bacteria Few /HPF (NONE) Rhythm Strip Diag. Results EP Interpretation: yes Rate: 80 Rhythm: no PVC's, no ectopy, other - Atrial fibrillation Chest X-Ray Diagnostic Results Chest X-Ray Diagnostic Results : Chest X-Ray Ordered: Yes # of Views/Limited/Complete: 1 View Indication: Chest Pain EP Interpretation: Yes Interpretation: no consolidation, no effusion, no pneumothorax Impression: No acute disease Electronically Signed by: Amanda Govea DO CT/MRI/US Diagnostic Results CT/MRI/US Diagnostic Results : Impression CT abdomen pelvisIMPRESSION: L2 and L4 vertebral compression fracture deformities probably old. Correlate clinically. No acute findings appreciated within the abdomen or pelvis to account for the given abdominal pain presentation. Diverticulosis of the colon. No definite diverticulitis. Right renal cyst Status post cholecystectomy. Hiatal hernia moderate in size. Scarring in the anterior right kidney. Atherosclerotic vascular disease Last Vital Signs Date Time Temp Pulse Resp B/P (MAP) Pulse Ox O2 Delivery O2 Flow Rate FiO2 02/18/19 09:41 97.9 86 19 93/67 (76) 96 Room Air Status: improved Disposition: ADMITTED INPATIENT Condition: Serious Amanda Govea DO February 18, 2019 10:17
[2019-02-18 10:19] VITALS: BP 103/68
[2019-02-18 10:23] LABS: BASOPHILS % (AUTO) 0.7 % (0.0-2.0); EOSINOPHILS % (AUTO) 2.5 % (0.0-3.0); HEMATOCRIT 38.8 % (37.0-47.0); HEMOGLOBIN 12.5 G/DL (12.0-16.0); LYMPHOCYTES % (AUTO) 25.2 % (20.0-45.0); MEAN CORPUSCULAR VOLUME 84 FL (80-99); NEUTROPHILS % (AUTO) 65.6 % (45.0-75.0); PLATELET COUNT 132 K/UL (150-450); RED BLOOD COUNT 4.63 M/UL (4.20-5.40); WHITE BLOOD COUNT 5.9 K/UL (4.8-10.8)
[2019-02-18 10:33] LABS: ANION GAP 12 mmol/L (5-15); BLOOD UREA NITROGEN 18 mg/dL (7-18); CALCIUM 8.4 MG/DL (8.5-10.1); CARBON DIOXIDE 22 MMOL/L (21-32); CHLORIDE 108 MMOL/L (98-107); POTASSIUM 3.6 MMOL/L (3.5-5.1); SODIUM 141 MMOL/L (136-145)
[2019-02-18 10:34] LABS: INR 1.1 (0.9-1.1)
[2019-02-18 10:47] LABS: ALANINE AMINOTRANSFERASE 14 U/L (12-78); ALBUMIN 3.3 G/DL (3.4-5.0); ALBUMIN/GLOBULIN RATIO 0.8 (1.0-2.7); ALKALINE PHOSPHATASE 72 U/L (46-116); ASPARTATE AMINO TRANSFERASE 20 U/L (15-37); BILIRUBIN,TOTAL 0.4 MG/DL (0.2-1.0); CKMB 0.6 NG/ML (0.0-3.6); CREATINE KINASE 55 U/L (26-308)
--- NOTE | 2019-02-18 10:49 | NUR ---
ED Nurse Note: Pt off the floor to CT abd.
--- NOTE | 2019-02-18 11:04 | NUR ---
ED Nurse Note: Pt back from CT, pt tolerated well. IV reconnected.
--- NOTE | 2019-02-18 11:36 | Diagnostic Imaging Report ---
Indication: Abdominal pain Technique: Continuous helical transaxial imaging of the abdomen and pelvis was obtained from the lung bases to the pubic symphysis during intravenous contrast administration. Coronal 2-D reformats were also obtained. Study obtained in a Siemens sensation [address] Automatic Exposure Control was utilized. Total Dose length Product (DLP): 838.[address] Dose Index Volume (CTDIvol): 17.05 mGy Comparison: 12/03/2012 Findings: The lung bases are clear. There is an old left posterior rib fracture in the lower chest. There is a hiatal hernia moderate in size. Cholecystectomy noted. The liver and spleen are unremarkable. Pancreas is unremarkable. There is scarring in the anterior part of the right kidney. No renal stones are hydronephrosis appreciated. Appendix is not definitely seen. There are no secondary signs of acute appendicitis. Diverticula noted throughout the colon. No definite diverticulitis is appreciated. Most of diverticula are in the sigmoid region. There is no free fluid. Bowel gas pattern is nonobstructive. There is mild calcification of aorta. A small cyst is noted in the lower pole the right kidney. Bladder is nondistended and largely obscured as is much of the lower pelvis due to streak artifact from bilateral hip prostheses. There are compression fracture deformities of the L2 and L4 vertebra are not present on the 2013 examination but are still probably old. Correlate clinically. Bones are osteopenic. IMPRESSION: L2 and L4 vertebral compression fracture deformities probably old. Correlate clinically. No acute findings appreciated within the abdomen or pelvis to account for the given abdominal pain presentation. Diverticulosis of the colon. No definite diverticulitis. Right renal cyst Status post cholecystectomy. Hiatal hernia moderate in size. Scarring in the anterior right kidney. Atherosclerotic vascular disease The CT scanner at [facility] is accredited by the [employer] and the scans are performed using dose optimization techniques as appropriate to a performed exam including Automatic Exposure control.
--- NOTE | 2019-02-18 11:37 | NUR ---
ED Nurse Note: Urine sample sent to lab
[2019-02-18 11:38] VITALS: BP 98/57
--- NOTE | 2019-02-18 11:58 | Diagnostic Imaging Report ---
Indication: Chest pain Comparison: 03/26/2017 A single view chest radiograph was obtained. Findings: No definite infiltrate or pulmonary vascular congestion identified. There is a hiatal hernia present. The heart is enlarged. The aorta is mildly enlarged consistent with atherosclerotic vascular disease. The bones are osteopenic. Impression: No acute disease
[2019-02-18 12:07] LABS: APPEARANCE,URINE CLEAR; BILIRUBIN, URINE NEGATIVE (NEGATIVE); COLOR,URINE PALE YELLOW; GLUCOSE, URINE (UA) NEGATIVE (NEGATIVE); KETONES,URINE NEGATIVE (NEGATIVE); LEUKOCYTE ESTERASE ,URINE NEGATIVE (NEGATIVE); NITRITE,URINE NEGATIVE (NEGATIVE); PH,URINE 7 (4.5-8.0); PROTEIN,URINE NEGATIVE (NEGATIVE); UROBILINOGEN,URINE NORMAL MG/DL (0.0-1.0)
--- NOTE | 2019-02-18 12:46 | NUR ---
TRANSFER TO FLOOR: Patient transferred to as ordered, per Jamedor. Report given to . Belongings and medications given to . Pt VSS, R hand IV patent.
[2019-02-18 12:48] VITALS: BP 103/72
[2019-02-18 12:49] VITALS: BP 103/72
--- NOTE | 2019-02-18 13:20 | NUR ---
CHARGE NURSE NOTES: Received Pt on the floor, VS stable. Pt is confused, IV is in tact. Belongings reviewed and accounted for. Bed is in the lowest position. Call light is within the reach. Will continue to monitor
--- NOTE | 2019-02-18 13:23 | IOP Individual Progress Note ---
IOP Individual Progress Note Interdisciplinary Type: Phone Contact Comments: After arrival patient complained about an intense low back pain, her daughter was called by [employer] and the mail voice was full not taking messages. [employer] asked the patient is she wanted to received ER attention and she said that she needed them. oem sales manager took patient in a wheelchair to the [facility] ER, where she was hospitalized. Upon finishing seeing patient this therapist was recommended by program director/air personality to call the patient daughter to inform her about this situation. This therapist called and informed the daughter as requested. 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 SHAWANDA NUNEZ February 18, 2019 13:23
--- NOTE | 2019-02-18 14:00 | NUR ---
NURSE NOTES: Dr Molina called for the admission orders
--- NOTE | 2019-02-18 15:25 | NUR ---
NURSE NOTES: Pt's daughter came and said that she wants to sign Pt AMA because her mother has dementia and she doesn't want her to stay here. Tried to explain that it is not safe for the pt to leave. Explained that we just got an orders from primary MD and advised to stay for the further evaluation. Pt's daughter refused and insisting on leaving. Dr Molina notified
--- NOTE | 2019-02-19 03:30 | History and Physical Report ---
DATE OF ADMISSION: 02/18/2019 HISTORY OF PRESENT ILLNESS: The patient left against medical advice . The patient was originally admitted for low back pain, dehydration, history of lumbar fracture, seen in the ER. Dr. Welsh and Dr. Jimenez were consulted for back pain and dehydration; however, the patient's daughter insisted on sending the patient home against medical advice. She signed the paper against medical advice, and the patient was discharged. The patient was discharged a couple of hours after being admitted to the floor, so obviously I could not have a chance to see the patient. So, H and P for this admission. The patient left against medical advice a couple of hours after being admitted and was discharged on the same day that she was admitted per daughter's request. Amanda Molina M.D. DR: Brent JOB#: [id number] CC:
--- NOTE | 2019-02-20 09:56 | Discharge Summary ---
Discharge Summary Discharge Summary _ DATE OF ADMISSION: 02/18/2019 DATE OF DISCHARGE: 02/18/2019 BRIEF HOSPITAL COURSE: Patient is a 78-year-old female, who presented to ED due to back pain. Patient was awakened from sleep due to pain. She denied any focal weakness however complained of increased pain with ambulation. She denied fever or chills. She reported history of osteoporosis. She also had previous low back and neck surgery. She denied any neuropathy. Denies loss of control of bowels or urination. She denies upper extremity weakness. She denied any recent fall or trauma. On evaluation the ED, patient was afebrile. Blood pressure was 93/67. MA P 76. Blood work did not show any leukocytosis, hemoglobin and hematocrit were stable. Platelet count was 132. Electrolytes were normal. Troponin was negative. Urinalysis was essentially unremarkable. She had a chest x-ray that showed no acute disease. CT of the abdomen and pelvis showed L2 and L4 vertebral compression fracture deformities, probably old. No acute findings within the abdomen or pelvis. She was then admitted for evaluation of low back pain. Patient was admitted to medical floor. Patient's daughter came and patient left AMA. FINAL DIAGNOSES: Low back pain Weakness Compression fracture on L2 and L4 DISPOSITION: Patient left against medical advise. I have been assigned to complete a discharge summary on this account, I was not involved with the patient's management. Jyotsna Velazquez NP February 20, 2019 09:56
--- NOTE | 2019-02-20 15:33 | Cardiology Report ---
APPROVED REPORT EKG Measurement Heart [id number] Atrial fibrillation Low voltage QRS Nonspecific T wave abnormality Abnormal ECG
== END 2019-02-18 16:23 | disposition left against medical advice (07) | DRG 552 ==
LOC: EMR 10:25 → EDBEDREQ 10:34 → 4E 11:26 → EDBEDREQ 11:54
DX: M54.5 Low back pain (principal); M48.56XD Collapsed vertebra, not elsewhere classified, lumbar region, subsequent encounter for fracture with routine healing; M81.0 Age-related osteoporosis without current pathological fracture; Z88.1 Allergy status to other antibiotic agents; E86.0 Dehydration
CPT/HCPCS: 36415; 71045; 74177; 80053; 81003; 82550; 82553; 84484; 85025; 85610; 85730; 93005; 99284